=== PATIENT | female | born 1990 | race Caucasian/White ===

== ENCOUNTER → 2022-08-02 09:52 | Outpatient (CLI) | payer BC, SELFPAY ==
--- NOTE | ~2022-08-02 | DEXA_ITS ---
Bone Density Report Name: TOMI LO Age: 32 Sex: Female Ethnicity: White Date of : 1990 Indication: AMENORRHEA Referring Provider: JOSUÉ CAST Study: Bone densitometry was performed. Exam Date: August 02, 2022 Accession number: [id number] Bone Density: Region BMD T-score Z-score Classification AP Spine (L1-L4) 0.959 -0.8 -0.8 Normal Femoral Neck (Left) 0.881 0.3 0.4 Normal Total Hip (Left) 0.895 -0.4 -0.3 Normal Femoral Neck (Right) 0.960 1.0 1.1 Normal Total Hip (Right) 0.878 -0.5 -0.5 Normal Total Hip Mean 0.887 -0.5 -0.4 Normal World Health Organization criteria for BMD impression classify patients as: Normal (T-score at or above -1.0), Osteopenia (T-score between -1.0 and -2.5), or Osteoporosis (T-score at or below -2.5). 10-year Fracture Risk: FRAX not reported because: Premenopausal woman All T-scores for Spine Total, Hip Total, Femoral Neck at or above -1.0 Clinical Information Provided by Patient: Has used the following medications: HRT (i.e. estrogen/hormone therapy), Vitamin D, Calcium Patient maximum height was 67.5 Does not regularly consume dairy products Drinks caffeinated beverages Onset of menses at age 11 Premenopausal Number of children 0 Missed period for more than 6 months in a row Impression: The patient's bone mass is within expected range for age, gender and ethnicity. Discussion: BONE DENSITY IS WITHIN EXPECTED LIMITS FOR AGE, SEX AND RACE. Bone density is within expected limits for age, sex and race at all sites measured. The patient should follow a healthful lifestyle (good nutrition with adequate calcium and vitamin D, and appropriate weight-bearing exercise). Follow-Up: Consider repeating this study in 5 years or sooner if there is some new clinical indication. Reported by: [facility] on 08/02/2022 10:10:00 AM. Reviewed, dictated and finalized at location [facility]
== END ==
DX: Z78.0 Asymptomatic menopausal state (principal)
CPT/HCPCS: 77080